=== PATIENT | male | born 1945 | race Caucasian/White ===

== ENCOUNTER 2018-01-16 09:25 | Day surgery (SDC) | payer OTHER ==
[2018-01-15 13:35] VITALS: BMI 28.5
[2018-01-16 10:16] VITALS: TEMP 97.8
--- NOTE | 2018-01-16 12:07 | OP ---
Operative Note - Note: Operative Date: 01/16/18 Pre-Operative Diagnosis: Right ureteral stone Operation: Right ESWL Findings: 3.5 mm right ureteral stone Post-Operative Diagnosis: Same as Pre-op Surgeon: Miguel Mayes MD. Anesthesia: MAC Operative Report Dictated: Yes
[2018-01-16] MEDS ORDERED: ELECTROLYTE-148 SOLN 1,000 ML IV SCH (12:15)
[2018-01-16] MEDS ORDERED: MIDAZOLAM HCL 2 MG/2 ML SINGLE DOSE VIAL ONE ×2 (12:21→12:33)
[2018-01-16] MEDS ORDERED: ceFAZolin SODIUM 1 GM VIAL ONE (12:21)
[2018-01-16] MEDS ORDERED: PROPOFOL 20 ML ONE (12:21)
[2018-01-16] MEDS ORDERED: KETOROLAC TROMETHAMINE 30 MG/1 ML VIAL ONE (12:21)
[2018-01-16] MEDS ORDERED: LIDOCAINE HCL/PF 2% SDV 5ML VIAL ONE (12:21)
--- NOTE | 2018-01-16 13:24 | OP ---
DATE OF OPERATION: 01/16/2018 PREOPERATIVE DIAGNOSIS: Right distal ureteral calculus. POSTOPERATIVE DIAGNOSIS: Right distal ureteral calculus. PROCEDURE PERFORMED: Right extracorporeal shock wave lithotripsy. SURGEON: Miguel Mayes MD INDICATIONS: The patient is a very pleasant 72-year-old gentleman with history of right-sided flank pain, who presented to the emergency room and CAT scan revealed a 3.5-mm right distal ureteral calculus. The patient continued to have persistent pain over quite some time now. It has been approximately 3 to 4 weeks since the initial presentation. Followup KUB confirmed the presence of stone. Pain has been intermittent during the course of the past few weeks. All treatment options were discussed. The risks and benefits of treatment and alternative treatments were discussed in detail. DESCRIPTION OF PROCEDURE: The patient was brought to the operating room and placed in the supine position. Using 3D fluoroscopy, the stone was visualized in the distal ureter in the pelvis and was localized in the X, Y and Z axes. At this time, approximately 3000 shocks were delivered in electromagnetic fashion. The patient tolerated the procedure well and was brought to the recovery room in stable and satisfactory condition. Vidya [id number]
[2018-01-16 14:16] VITALS: BP 133/75; PULSE 79
== END 2018-01-16 14:05 | disposition home or self-care (01) ==
LOC: JOR 09:25 → JASU-SURG 09:25
PROVIDERS: ATTEND Urology
PROC: 0TF6XZZ Fragmentation in Right Ureter, External Approach (ICD-10-PCS; principal; 2018-01-16 12:00)
DX: N20.1 Calculus of ureter (principal)
CPT/HCPCS: 82962